=== PATIENT | female | born 1970 | race Two or more races ===

== ENCOUNTER 2018-06-29 16:42 | Emergency (ER) | payer OTHER, SELFPAY ==
[~2018-06-29] VITALS: Ht 160 cm; Wt 57.0 kg
[2018-06-29] MEDS ORDERED: SODIUM CHLORIDE FLUSH 10ML SYR IVF ONE (17:00)
[2018-06-29 17:18] LABS: BASOPHILS # (AUTO) 0.05 x10^3/uL (0-0.1); BASOPHILS % (AUTO) 1 % (0-1); EOSINOPHILS # (AUTO) 0.11 x10^3/uL (0-0.4); EOSINOPHILS % (AUTO) 1 % (1-7); LYMPHOCYTES # (AUTO) 2.76 x10^3/uL (1-3.4); LYMPHOCYTES % (AUTO) 28 % (22-44); MD NO; MEAN CORPUSCULAR HEMOGLOBIN 30.1 pg (27.0-34.8); MEAN CORPUSCULAR VOLUME 88.6 fL (80-100); MEAN PLATELET VOLUME 8.4 fL (7.4-10.4); MONOCYTES # (AUTO) 0.51 x10^3/uL (0.2-0.8); MONOCYTES % (AUTO) 5 % (2-9); NEUTROPHILS # (AUTO) 6.56 x10^3/uL (1.8-6.8); NEUTROPHILS % (AUTO) 66 % (42-75); PLATELET COUNT 305 x10^3/uL (130-400); RED BLOOD COUNT 4.73 x10^6/uL (3.82-5.3); RED CELL DISTRIBUTION WIDTH 13.5 % (9.6-15.2)
[2018-06-29] MEDS ORDERED: ONDANSETRON ODT 4 MG ONE ×2 (17:27→20:42)
[2018-06-29] MEDS ORDERED: MORPHINE SULFATE 4 MG/ML, 1ML ONE ×2 (17:27→18:20)
[2018-06-29 17:28] LABS: ALBUMIN 3.9 g/dL (3.4-5.0); ANION GAP 5 mmol/L (5-15); CALCIUM 9.1 mg/dL (8.5-10.1); CHLORIDE 110 mmol/L (98-107); CREATININE 0.77 mg/dL (0.55-1.02)
[2018-06-29] MEDS ORDERED: SODIUM CHLORIDE 0.9% 1,000ML IVBOLUS ONE (17:30)
[2018-06-29] MEDS: ONDANSETRON ODT 4 MG PO PRN ×2 (17:30→20:43)
[2018-06-29] MEDS: MORPHINE SULFATE 4 MG/ML, 1ML IVPush PRN ×2 (17:31→18:23)
[2018-06-29] MEDS ORDERED: IBUP100O32 PO (17:34)
[2018-06-29] MEDS ORDERED: OMNIPAQUE 350 MG/ML, 100ML BOTTLE ONE (17:54)
[2018-06-29] MEDS ORDERED: KETOROLAC 30 MG/1 ML ONE (18:20)
[2018-06-29] MEDS ORDERED: KETOROLAC 30 MG/1 ML IVPush ONE (18:30)
[2018-06-29 18:33] LABS: MICROSCOPIC INDICATED
[2018-06-29 18:42] LABS: CULTURE INDICATED? YES
[2018-06-29] MEDS ORDERED: HYDROmorphone 1 MG/ML, 1ML IV ONE (19:00)
[2018-06-29] MEDS ORDERED: HYDROmorphone 2 MG/ML, 1ML ONE ×2 (19:00→20:38)
[2018-06-29] MEDS ORDERED: HYDROmorphone 1 MG/ML, 1ML IV PRN (20:30)
[2018-06-29 22:01] VITALS: BP 116/78
== END 2018-06-29 22:03 | disposition home or self-care (01) ==
LOC: ED 21:55
DX: R10.31 Right lower quadrant pain (principal); R10.32 Left lower quadrant pain; R10.2 Pelvic and perineal pain; R11.2 Nausea with vomiting, unspecified; R19.7 Diarrhea, unspecified; Z90.49 Acquired absence of other specified parts of digestive tract
CPT/HCPCS: 36415; 74177; 76830; 80048; 81001; 82040; 84703; 85025; 87077; 87086; 87186; 96374; 96375; 96376; 99285; J1170; J1885; Q0162; Q9967